=== PATIENT | female | born 1995 | race Caucasian/White ===

== ENCOUNTER 2018-12-28 23:24 | Emergency (ER) | payer OTHER ==
[~2018-12-28] VITALS: Ht 165.1 cm; Wt 87.1 kg
[2018-12-28 23:32] VITALS: Ht 165.1 cm; Wt 87.1 kg
[2018-12-29 00:25] VITALS: BP 118/79
== END 2018-12-29 00:25 | disposition home or self-care (01) ==
LOC: ED 23:24
DX: R10.32 Left lower quadrant pain (principal); R10.12 Left upper quadrant pain; R11.2 Nausea with vomiting, unspecified
CPT/HCPCS: J1885

== ENCOUNTER 2019-04-24 13:08 | Emergency (ER) | payer OTHER ==
[~2019-04-24] VITALS: Ht 165.1 cm; Wt 90.7 kg
[2019-04-24 13:16] VITALS: BP 127/76; Ht 165.1 cm; Wt 90.7 kg
== END 2019-04-24 14:02 | disposition home or self-care (01) ==
LOC: ED 13:08
DX: J20.9 Acute bronchitis, unspecified (principal)

== ENCOUNTER 2019-07-29 18:05 | Emergency (ER) | payer OTHER ==
[~2019-07-29] VITALS: Ht 165.1 cm; Wt 90.7 kg
[2019-07-29 18:19] VITALS: BP 162/88; Ht 165.1 cm; Wt 90.7 kg
== END 2019-07-29 20:17 | disposition left against medical advice (07) ==
LOC: ED 18:05
DX: Z53.21 Procedure and treatment not carried out due to patient leaving prior to being seen by health care provider (principal)

== ENCOUNTER 2020-03-09 23:17 | Emergency (ER) | payer OTHER ==
[~2020-03-09] VITALS: Ht 165.1 cm; Wt 91.6 kg
[2020-03-09 23:22] VITALS: Ht 165.1 cm; Wt 91.6 kg
[2020-03-10 01:21] LABS: AMPHETAMINE QUAL UR NONE DETECTED (See below)
[2020-03-10 01:22] LABS: BASOPHIL % 0.6 % (0-2); CALCIUM 8.6 mg/dL (8.5-10.1); CARBON DIOXIDE 31.4 mmol/L (21-32); CHLORIDE SERUM 102 mmol/L (98-107); CREATININE SERUM 0.8 mg/dL (0.6-1.0); GFR1 > 60 mL/min; GLUCOSE SERUM 104 mg/dL (74-106); PLATELET COUNT 300 x10^3mcL (130-400); RED CELL DISTRIBUTION WIDTH 12.7 % (11.5-14.5); SODIUM SERUM 138 mmol/L (136-145)
[2020-03-10 01:34] LABS: ALBUMIN 3.8 g/dL (3.4-5.0); ALKALINE PHOSPHATASE 99 U/L (46-116); ALT/SGPT 20 U/L (14-59); AST/SGOT 14 U/L (15-37); BILIRUBIN TOTAL 0.13 mg/dL (0.20-1.00); T4(THYROXINE) 8.6 ug/dL (4.7-13.3); TOTAL PROTEIN, SERUM 7.3 g/dL (6.4-8.2)
[2020-03-10 02:26] VITALS: BP 123/70
== END 2020-03-10 02:26 | disposition home or self-care (01) ==
LOC: ED 23:17
PROVIDERS: Emergency Medicine
DX: R20.2 Paresthesia of skin (principal); M54.5 Low back pain; R20.0 Anesthesia of skin; R10.9 Unspecified abdominal pain; R11.0 Nausea

== ENCOUNTER 2020-04-01 04:27 | Inpatient (IN) | payer OTHER ==
[~2020-04-01] VITALS: Ht 162.6 cm; Wt 91.2 kg
[2020-04-01 04:33] VITALS: Ht 162.6 cm; Wt 91.2 kg
[2020-04-01 05:26] LABS: BASOPHIL % 0.8 % (0-2); PLATELET COUNT 256 x10^3mcL (130-400); RED CELL DISTRIBUTION WIDTH 12.9 % (11.5-14.5)
[2020-04-01 05:34] LABS: CALCIUM 8.2 mg/dL (8.5-10.1); CARBON DIOXIDE 29.5 mmol/L (21-32); CHLORIDE SERUM 103 mmol/L (98-107); CREATININE SERUM 0.9 mg/dL (0.6-1.0); GFR1 > 60 mL/min; GLUCOSE SERUM 98 mg/dL (74-106); SODIUM SERUM 140 mmol/L (136-145)
[2020-04-01 05:40] LABS: ALBUMIN 3.7 g/dL (3.4-5.0); ALKALINE PHOSPHATASE 93 U/L (46-116); ALT/SGPT 20 U/L (14-59); AMYLASE 83 U/L (25-115); AST/SGOT 13 U/L (15-37); BILIRUBIN TOTAL 0.24 mg/dL (0.20-1.00); LIPASE 139 IU/L (73-393); TOTAL PROTEIN, SERUM 7.3 g/dL (6.4-8.2)
[2020-04-01 13:21] VITALS: BP 116/66
[2020-04-01 13:26] VITALS: BP 116/66
[2020-04-01 13:29] LABS: UA SPECIFIC GRAVITY 1.025 (1.005-1.035); microscopic required? YES; urine erythrocyte 3+ (NEGATIVE)
[2020-04-01 13:42] LABS: AMPHETAMINE QUAL UR NONE DETECTED (See below)
[2020-04-01 17:12] VITALS: BP 119/71
[2020-04-01 21:15] VITALS: BP 124/78
[2020-04-02 05:36] VITALS: BP 113/64
[2020-04-02 06:32] LABS: BASOPHIL % 0.6 % (0-2); PLATELET COUNT 226 x10^3mcL (130-400); RED CELL DISTRIBUTION WIDTH 12.6 % (11.5-14.5)
[2020-04-02 06:54] LABS: ALKALINE PHOSPHATASE 76 U/L (46-116); ALT/SGPT 16 U/L (14-59); AST/SGOT 18 U/L (15-37); BILIRUBIN TOTAL 0.5 mg/dL (0.20-1.00); C REACTIVE PROTEIN 1.3 mg/dL (<=0.9); CALCIUM 7.9 mg/dL (8.5-10.1); CARBON DIOXIDE 27.7 mmol/L (21-32); CHLORIDE SERUM 103 mmol/L (98-107); CREATININE SERUM 0.8 mg/dL (0.6-1.0); GFR1 > 60 mL/min; GLUCOSE SERUM 87 mg/dL (74-106); MAGNESIUM 1.9 mg/dL (1.8-2.4); PHOSPHOROUS 3.3 mg/dL (2.5-4.9); POTASSIUM SERUM 3.8 mmol/L (3.5-5.1); SODIUM SERUM 137 mmol/L (136-145); TOTAL PROTEIN, SERUM 6.3 g/dL (6.4-8.2)
[2020-04-02 07:02] LABS: ALBUMIN 3.1 g/dL (3.4-5.0)
[2020-04-02 08:31] VITALS: BP 112/69
[2020-04-02 11:55] VITALS: BP 101/55
[2020-04-02 16:17] VITALS: BP 107/57
[2020-04-02 20:43] VITALS: BP 122/67
[2020-04-03 05:55] VITALS: BP 124/80
[2020-04-03 06:42] LABS: BASOPHIL % 1.3 % (0-2); PLATELET COUNT 256 x10^3mcL (130-400); RED CELL DISTRIBUTION WIDTH 12.1 % (11.5-14.5)
[2020-04-03 07:07] LABS: CALCIUM 8.2 mg/dL (8.5-10.1); CARBON DIOXIDE 27.3 mmol/L (21-32); CHLORIDE SERUM 105 mmol/L (98-107); CREATININE SERUM 0.8 mg/dL (0.6-1.0); GFR1 > 60 mL/min; GLUCOSE SERUM 94 mg/dL (74-106); POTASSIUM SERUM 3.9 mmol/L (3.5-5.1); SODIUM SERUM 139 mmol/L (136-145)
[2020-04-03 08:51] VITALS: BP 92/54
[2020-04-03 12:19] VITALS: BP 123/60
[2020-04-03 16:52] VITALS: BP 115/65
[2020-04-03 17:16] VITALS: BP 115/65
== END 2020-04-03 20:08 | disposition home or self-care (01) | DRG 263 ==
LOC: ED 04:27 → MU 10:32
PROVIDERS: Emergency Medicine; Family Medicine Addiction Medicine; ADMIT Internal Medicine; ATTEND Internal Medicine
PROC: 0DN84ZZ Release Small Intestine, Percutaneous Endoscopic Approach (ICD-10-PCS; 2020-04-03)
PROC: 0FT44ZZ Resection of Gallbladder, Percutaneous Endoscopic Approach (ICD-10-PCS; principal; 2020-04-03 10:30)
DX: K81.0 Acute cholecystitis (principal); E83.51 Hypocalcemia; Z20.828 Contact with and (suspected) exposure to other viral communicable diseases
CPT/HCPCS: G0378; J0690; J0696; J0744; J1170; J1885; J2001; J2175; J2250; J2270; J2405; J3010; J3490; J7030; J7060; Q0092; U0003-CS